=== PATIENT | male | born 1950 | race Caucasian/White ===

== ENCOUNTER 2021-09-12 14:41 | Outpatient (RCR) | payer MEDICARE, SELFPAY ==
--- NOTE | ~2021-09-12 | XR_ITS ---
EXAMINATION: XR foot LT #V, XR ankle LT 2V CLINICAL INFORMATION: Osteomyelitis COMPARISON: None. TECHNIQUE: AP and oblique views left ankle. AP, lateral, and oblique views left foot FINDINGS: No widening of the ankle mortise. The talar dome is intact. There is mild osteophytosis of the medial malleolus. There is a well-corticated ossific fragment adjacent the medial malleolus presumably sequelae of prior trauma. There is osteophytosis of the lateral talus. There is an abnormal appearance to the fifth metatarsal head which appears eroded and collapsed. There is overlying soft tissue swelling and lucency consistent with a soft tissue ulcer. The fifth toe is immediately dislocated. Mild osteoarthritis of the first metatarsophalangeal joint. XR/XR ankle LT 2V IMPRESSION: Abnormal erosive appearance of the fifth metatarsal head with overlying soft tissue abnormality suspicious for osteomyelitis.
--- NOTE | ~2021-09-12 | XR_ITS ---
EXAMINATION: XR foot LT #V, XR ankle LT 2V CLINICAL INFORMATION: Osteomyelitis COMPARISON: None. TECHNIQUE: AP and oblique views left ankle. AP, lateral, and oblique views left foot FINDINGS: No widening of the ankle mortise. The talar dome is intact. There is mild osteophytosis of the medial malleolus. There is a well-corticated ossific fragment adjacent the medial malleolus presumably sequelae of prior trauma. There is osteophytosis of the lateral talus. There is an abnormal appearance to the fifth metatarsal head which appears eroded and collapsed. There is overlying soft tissue swelling and lucency consistent with a soft tissue ulcer. The fifth toe is immediately dislocated. Mild osteoarthritis of the first metatarsophalangeal joint. XR/XR foot LT 2V IMPRESSION: Abnormal erosive appearance of the fifth metatarsal head with overlying soft tissue abnormality suspicious for osteomyelitis.
--- NOTE | ~2021-09-12 | XR_ITS ---
EXAMINATION: XR CHEST 2 VIEWS CLINICAL INFORMATION: Pre-procedure examination. COMPARISON: None. TECHNIQUE: Frontal and lateral views of the chest were obtained. FINDINGS: The heart, great vessels and mediastinum are normal. There is mild pulmonary vascular congestion, without overt pulmonary edema. The lungs show no focal infiltrate, effusion or pneumothorax. There is no acute osseous abnormality. XR/XR chest 2V IMPRESSION: 1. There is a mild pulmonary vascular congestion, without overt pulmonary edema. 2. No focal infiltrate or effusion is seen.
[2021-10-29 14:24] LABS: C Reactive Protein 0.23 mg/dL (< or = 0.50)
[2021-10-29 14:37] LABS: Erythrocyte Sedimentation Rate 12 MM/HR (0-15)
== END 2021-11-18 14:00 | disposition home or self-care (01) ==
LOC: HO.WCC 14:41
PROVIDERS: PCP Internal Medicine; Referring Provider Internal Medicine; Visit Provider Physician Assistant
DX: L97.512 Non-pressure chronic ulcer of other part of right foot with fat layer exposed (principal); L97.522 Non-pressure chronic ulcer of other part of left foot with fat layer exposed; M86.471 Chronic osteomyelitis with draining sinus, right ankle and foot; G60.3 Idiopathic progressive neuropathy; I10 Essential (primary) hypertension; G62.9 Polyneuropathy, unspecified; F17.210 Nicotine dependence, cigarettes, uncomplicated; Z79.2 Long term (current) use of antibiotics; Z79.899 Other long term (current) drug therapy
CPT/HCPCS: 11042; 36415; 71046; 73600; 73620; 85652; 86140; 97597; 99183; 99213

== ENCOUNTER 2022-10-07 08:03 | Outpatient (RCR) | payer MEDICARE, SELFPAY | END 2022-12-26 14:43 | disposition home or self-care (01) | LOC: HO.WCC 08:03 | PROVIDERS: PCP Internal Medicine; Visit Provider Physician Assistant | DX: L97.524 Non-pressure chronic ulcer of other part of left foot with necrosis of bone (principal); L03.116 Cellulitis of left lower limb; I73.9 Peripheral vascular disease, unspecified; G62.1 Alcoholic polyneuropathy; A49.02 Methicillin resistant Staphylococcus aureus infection, unspecified site; I10 Essential (primary) hypertension; F17.210 Nicotine dependence, cigarettes, uncomplicated; Z79.2 Long term (current) use of antibiotics | CPT/HCPCS: 11042; 11044; 15275; 87070; 87073; 87077; 87186; 87205; 99213; Q4187 ==

== ENCOUNTER → 2024-07-22 14:14 | Outpatient (BNV) | payer MEDICARE, SELFPAY | PROVIDERS: PCP Internal Medicine; Visit Provider Radiology Diagnostic Radiology | DX: S91.302A Unspecified open wound, left foot, initial encounter (principal) | CPT/HCPCS: 73630 ==

== ENCOUNTER 2024-08-05 14:45 | Outpatient (RCR) | payer MEDICARE, SELFPAY ==
--- NOTE | ~2024-08-05 | XR_ITS ---
EXAMINATION: XR FOOT 3 OR MORE VIEWS LEFT HISTORY: NON HEALING WOUND COMPARISON: Comparison is made with the prior examination dated 10/29/2021. FINDINGS: Three views of the left foot are submitted. Osseous mineralization is normal. There is a chronic deformity of the 5th metatarsal head with dislocation of the 5th toe. There is deformity of the proximal phalanx of the great toe which is new from the prior study. No acute fracture is seen. 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 The soft tissues are unremarkable. XR/XR foot LT min 3V IMPRESSION: Chronic appearing deformities of the left foot as described. Electronically signed by: Ismael Zuñiga MD 07/22/2024 02:25 PM EDT
== END 2024-08-05 16:27 | disposition home or self-care (01) ==
LOC: HO.WCC 14:45
PROVIDERS: PCP Internal Medicine; Visit Provider Surgery
DX: L97.512 Non-pressure chronic ulcer of other part of right foot with fat layer exposed (principal); L97.522 Non-pressure chronic ulcer of other part of left foot with fat layer exposed; G99.0 Autonomic neuropathy in diseases classified elsewhere; I10 Essential (primary) hypertension; M10.00 Idiopathic gout, unspecified site; G47.33 Obstructive sleep apnea (adult) (pediatric); Z72.0 Tobacco use
CPT/HCPCS: 11042; 73630; 97597; 99213